=== PATIENT | female | born 1995 ===

== ENCOUNTER 2022-01-22 01:50 | Outpatient (CLI) | payer SELFPAY | END 2022-01-22 01:51 | disposition home or self-care (01) | LOC: RT 01:50 | PROVIDERS: Visit Provider Family Medicine ==

== ENCOUNTER 2022-11-02 09:02 | Outpatient (CLI) | payer MEDICAID, SELFPAY ==
--- NOTE | 2022-11-02 09:00 | RT.EKG_ITS ---
APPROVED REPORT Exam: Resting ECG Reason for Exam: High Risk Medication Patient Location: O HR:73 bpm ECG Measurements Heart Rate 73 AXIS IL 160 P 48 QRSd 110 QRS 4 QT 420 T 56 QTc 463 Conclusion Sinus rhythm...normal P axis, V-rate 50- 99 RSR' in V1 or V2, normal variant
== END 2022-11-02 09:03 | disposition home or self-care (01) ==
PROVIDERS: Visit Provider Family Medicine
DX: Z79.899 Other long term (current) drug therapy (principal)
CPT/HCPCS: 93005; 93010